=== PATIENT | male | born 1960 | race Caucasian/White ===

== ENCOUNTER 2019-08-05 20:15 | Inpatient (IN) | payer SELFPAY ==
[2019-08-05] MEDS ORDERED: ASPIRIN 81 MG TABLET, CHEWABLE PO ONE (20:25)
[2019-08-05] MEDS ORDERED: DILTIAZEM HCL INJ 25 MG/5 ML VIAL ONE (20:33)
[2019-08-05] MEDS ORDERED: DILTIAZEM HCL INJ 25 MG/5 ML VIAL IV ONE ×2 (20:33→20:34)
[2019-08-05] MEDS ORDERED: DILTIAZEM HCL/D5W 125 MG/125 ML RTUINJ IV PRN (20:35)
[2019-08-05] MEDS ORDERED: NORMAL SALINE 1000 ML 1,000 ML IV ONE ×2 (20:36→21:00)
[2019-08-05 21:06] LABS: ABSOLUTE BASOPHILS # (AUTO) 0.1 10^3/uL (0.0-0.2); ABSOLUTE EOSINOPHILS # (AUTO) 0.2 10^3/uL (0.0-0.6); ABSOLUTE MONOCYTES (AUTO) 0.7 10^3/uL (0.1-1.4); HEMOGLOBIN 14.4 g/dL (13.5-17.0); MEAN CORPUSCULAR HEMOGLOBIN 29.4 pg (27.0-33.4); TOTAL CELLS COUNTED % (AUTO) 100 %
[2019-08-05 21:12] LABS: ABSOLUTE LYMPHOCYTES (AUTO) 2.5 10^3/uL (0.5-4.7); ABSOLUTE NEUT (AUTO) 5.2 10^3/uL (1.7-8.2); EOSINOPHILS % (AUTO) 2.4 % (0-6); HEMATOCRIT 42.3 % (37.9-51.0); LYMPHOCYTES % (AUTO) 29.1 % (13-45); MEAN CORPUSCULAR VOLUME 86 fl (80-97); MONOCYTES % (AUTO) 8.2 % (3-13); PLATELET COUNT 208 10^3/uL (150-450); RED BLOOD COUNT 4.89 10^6/uL (4.35-5.55); RED CELL DISTRIBUTION WIDTH 14.6 % (11.5-14.0); SEGMENTED NEUTROPHILS % (AUTO) 59.3 % (42-78); WHITE BLOOD COUNT 8.8 10^3/uL (4.0-10.5)
--- NOTE | 2019-08-05 21:13 | ER Document Report ---
ED Cardiac - General Stated Complaint: CHEST PRESSURE,RAPID HEART RATE Information source: Patient - HPI Patient complains to provider of: Palpitations. denies: Chest pain, Chest tightness, Shortness of breath, Other Use of: denies: Alcohol, Amphetamines, Bath salts, Caffeine, Cocaine, Decongestants, Other Was the onset of pain: Unknown - patient believes this has been occuring for a week Chest pain location: No: Substernal, Axillary, Back, Pleuritic, Under breast, Other Quality of pain: denies: None, Constant, Intermittent, Mild, Moderate, Severe, A anabella, Burning, Constriction, Cramping, Crushing, Dull, Heaviness, Incisional, Indigestion, Numbness, Pressure, Radiating, Sharp, Stabbing, Tearing, Throbbing, Tightness, Tingling, Other Chest pain radiation location: denies: Left jaw, Left arm, Left shoulder, Right jaw, Right arm, Right shoulder, Back, Neck, None Chest pain precipitating factors: At Rest Cardiac risk factors: Hypertension, + Family history Positive cardiac history: Yes Associated symptoms: denies: None, Abdominal pain, Anxiety, Back pain, Cool extremities, Diaphoresis, Dizziness, Edema, Fatigue, Fever/chills, Headache, Heartburn, Hypotension, Jaw pain, Lightheaded, Nausea/vomiting, Neck pain, Rash, Shortness of breath, Swelling/lump in chest, Syncope, Weakness, Other Exacerbated by: denies: Denies, Sitting, Standing, Activity, Emotional stress, Coughing, Deep breaths, Torso movement, Lying flat, Other Relieved by: denies: Nothing, Rest, Oxygen, NTG, NSAIDs, Leaning forward, Antacids, Other Similar symptoms previously: Yes - hx afib on metoprolol but not anticoagulants. - Related Data Allergies/Adverse Reactions: No Known Allergies Allergy (Unverified 08/05/19 21:19) Past Medical History - General Information source: Patient - Social History Smoking Status: Never Smoker Frequency of alcohol use: None Lives with: Alone Family History: CAD - Past Medical History Cardiac Medical History: Reports: Hx Atrial Fibrillation, Hx Hypertension Pulmonary Medical History: Reports: None Neurological Medical History: Reports: None Review of Systems - Review of Systems Constitutional: denies: No symptoms reported, See HPI, Chills, Diaphoresis, Fever, Malaise, Weakness, Other, Weight gain, Weight loss, Recent illness Cardiovascular: Palpitations, Heart racing. denies: No symptoms reported, See HPI, Chest pain, Orthopnea, Dyspnea, Syncope, Dizziness, Lightheaded, Edema, Other, Paroxysmal Nocturnal Dysp Respiratory: denies: No symptoms reported, See HPI, Cough, Hurts to breathe, Hemoptysis, Short of breath, Sputum, Stridor, Wheezing, Other Gastrointestinal: denies: No symptoms reported, See HPI, Abdomen distended, Abdominal pain, Diarrhea, Nausea, Vomiting, Constipation, Blood streaked bowels, Poor appetite, Poor fluid intake, Blood in vomit, Black stools, Rectal bleeding, Last bowel movement, Fecal incontinence, Other -: Yes All other systems reviewed and negative Physical Exam - Vital signs Vitals: Pulse Ox 97 08/05/19 20:25 Notes: PHYSICAL EXAMINATION: GENERAL: Well-appearing, well-nourished and in no acute distress. HEAD: Atraumatic, normocephalic. EYES: Pupils equal round and reactive to light, extraocular movements intact, sclera anicteric, conjunctiva are normal. ENT: nares patent, oropharynx clear without exudates. Moist mucous membranes. NECK: Normal range of motion, supple without lymphadenopathy LUNGS: Breath sounds clear to auscultation bilaterally and equal. No wheezes rales or rhonchi. HEART: Irregularly irregular tachycardic rhythm. With A. fib on the monitor. ABDOMEN: Soft, nontender, normoactive bowel sounds. No guarding, no rebound. No masses appreciated. EXTREMITIES: Normal range of motion, no pitting or edema. No cyanosis. NEUROLOGICAL: No focal neurological deficits. Moves all extremities spontaneously and on command. PSYCH: Normal mood, normal affect. SKIN: Warm, Dry, normal turgor, no rashes or lesions noted. Course - Vital Signs Vital signs: Temp Pulse Resp BP Pulse Ox 11 L 100/77 99 08/05/19 21:46 08/05/19 21:46 08/05/19 21:46 - Laboratory Result Diagrams: 08/05/19 20:50 08/05/19 20:50 Laboratory results interpreted by me: 08/05/19 08/05/19 20:50 20:50 RDW 14.6 H Glucose 141 H Creatine Kinase 197 H - Transfer of Care Notes: 08/05/19 22:04 Note after 20 mg IV bolus of Cardizem and then 5 and up to 10 mg/h heart rate now is 90 and 102 blood pressure is mid 90s over 70s I originally was 114/78 but after a liter IV fluid he is come up appropriately so I believe this is probably due to the Cardizem itself he is feeling much better. Therefore I spoke with Dr. Agustin who is going to admit the patient as he is not anticoagulated and is not sure when this began Discharge - Discharge Clinical Impression: Atrial fibrillation with RVR Condition: Stable Disposition: ADMITTED INPATIENT Admitting Provider: Nikole (Hospitalist) Unit Admitted: [facility]
[2019-08-05 21:17] LABS: ALBUMIN 4.4 g/dL (3.5-5.0); ALKALINE PHOSPHATASE 63 U/L (38-126); ANION GAP 13 (5-19); ASPARTATE AMINO TRANSFERASE 56 U/L (17-59); BILIRUBIN,DIRECT 0.3 mg/dL (0.0-0.4); BILIRUBIN,TOTAL 0.6 mg/dL (0.2-1.3); BLOOD UREA NITROGEN 16 mg/dL (7-20); CALCIUM 9.8 mg/dL (8.4-10.2); CARBON DIOXIDE 24 mmol/L (22-30); CHLORIDE 101 mmol/L (98-107); CREATINE KINASE 197 U/L (55-170); GLUCOSE 141 mg/dL (75-110); POTASSIUM 4.3 mmol/L (3.6-5.0); TOTAL PROTEIN 7.5 g/dL (6.3-8.2)
[2019-08-05 21:28] LABS: CREATINE KINASE MB 1.07 ng/mL (<4.55); TROPONIN I 0.022 ng/mL
--- NOTE | 2019-08-05 21:31 | RADIOLOGY REPORT (SQ) ---
EXAM DESCRIPTION: XR CHEST 1 VIEW COMPLETED DATE/TME: 08/05/2019 20:25 CLINICAL HISTORY: 59 years, Male, cp COMPARISON: None. EXAM DESCRIPTION: CLINICAL HISTORY: cp COMPARISON: None. FINDINGS: Single view of the chest is submitted. Cardiac silhouette is moderately enlarged. No focal parenchymal or pleural disease. No acute bony abnormality. There is slight pulmonary vascular engorgement. IMPRESSION: Cardiomegaly with slight pulmonary vascular engorgement.
[2019-08-05 21:48] LABS: INTERNATIONAL RATION (INR) 1.11; PROTHROMBIN TIME 14.4 SEC (11.4-15.4)
[2019-08-05] MEDS ORDERED: MAG HYDROX/AL HYDROX/SIMETH SUSP 30 ML UDCUP PO PRN (23:25)
[2019-08-05] MEDS ORDERED: ONDANSETRON HCL INJ/PF 4 MG/2 ML SDV IV PRN (23:25)
[2019-08-05] MEDS ORDERED: MAGNESIUM HYDROXIDE SUSP 30 ML UDCUP PO PRN (23:25)
[2019-08-05] MEDS ORDERED: TEMAZEPAM 15 MG CAPSULE PO PRN (23:25)
[2019-08-05] MEDS ORDERED: NALBUPHINE HCL INJ 10 MG/1 ML AMPULE IV PRN ×3 (23:29→23:46)
[2019-08-05] MEDS ORDERED: ACETAMINOPHEN 325 MG TABLET PO PRN (23:29)
[2019-08-05] MEDS ORDERED: APIXABAN 5 MG TABLET PO SCH (23:33)
[2019-08-05] MEDS ORDERED: FAMOTIDINE 20 MG TABLET PO ONE (23:45)
[2019-08-05] MEDS ORDERED: APIXABAN 5 MG TABLET PO ONE (23:45)
[2019-08-06] MEDS ORDERED: DILTIAZEM HCL 90 MG TABLET PO SCH
[2019-08-06 01:20] VITALS: BP 106/66
--- NOTE | 2019-08-06 07:06 | PDOC H&P ---
History of Present Illness Admission Date/PCP: 08/05/19 22:12 No local PCP Patient complains of: Palpitations History of Present Illness: ELSI RODRIGUES is a 59 year old male who presented to the emergency room with a one-week history of intermittent palpitations. Patient admits that he has had intermittent 15 to 20-minute episodes of palpitations (rapid heartbeat) for the last week and then had a longer episode of palpitations (greater than 1 hour) this evening causing him to come to the emergency room. He denies other associated or accompanying signs and symptoms. He admits prior similar symptoms with atrial fibrillation. He has not identified any aggravating or ameliorating factors for his palpitations. In the emergency room he was found to have atrial fibrillation with a rapid ventricular response and initially negative cardiac ischemic evaluation. He was subsequently admitted to the hospital for further evaluation and treatment. Past Medical History Cardiac Medical History: Reports: Atrial Fibrillation, Hypertension Denies: Congestive Heart Failure, Coronary Artery Disease, Myocardial Infarction, Hyperlipidema Pulmonary Medical History: Denies: Asthma, Chronic Obstructive Pulmonary Disease (COPD) EENT Medical History: Denies: Cataracts, Ears - Hearing aids Neurological Medical History: Denies: Hemorrhagic CVA, Ischemic CVA, Seizures Endocrine Medical History: Denies: Diabetes Mellitus Type 1, Diabetes Mellitus Type 2, Hyperthyroidism, Hypothyroidism Renal/ Medical History: Denies: Chronic Kidney Disease, Nephrolithiasis Malignancy Medical History: Reports: None GI Medical History: Denies: Cirrhosis, Crohn's Disease, Hepatitis, Ulcerative Colitis Musculoskeltal Medical History: Denies: Arthritis, Gout Skin Medical History: Denies: Eczema, Psoriasis Psychiatric Medical History: Denies: Alcohol Dependency, Substance Abuse, Tobacco Dependency Traumatic Medical History: Reports: None Hematology: Denies: Anemia, Bleeding Tendencies Infectious Medical History: Reports: None Past Surgical History Past Surgical History: Reports: Cardiac Catheterization Social History Information Source: Patient Lives with: Alone Smoking Status: Never Smoker Electronic Cigarette use?: No Frequency of Alcohol Use: None Hx Recreational Drug Use: No Drugs: None Hx Prescription Drug Abuse: No - Advance Directive Resuscitation Status: Full Code Surrogate healthcare decision maker:: Huey Oropeza Family History Family History: CAD Parental Family History Reviewed: Yes Children Family History Reviewed: No Sibling(s) Family History Reviewed.: Yes Medication/Allergy Home Medications: Buprenorphine HCl/Naloxone HCl [Buprenorphin-Naloxon 8-2 mg Sl] 1 each SL DAILY 08/05/19 Allergies/Adverse Reactions: No Known Allergies Allergy (Unverified 08/05/19 21:19) Review of Systems Constitutional: ABSENT: chills, fever(s) Eyes: ABSENT: visual disturbances, other - Eye pain Ears: ABSENT: hearing changes, other - Ear pain Nose, Mouth, and Throat: ABSENT: headache(s), mouth pain, sore throat Cardiovascular: PRESENT: as per HPI, chest pain, palpitations. ABSENT: dyspnea on exertion, orthropnea Respiratory: ABSENT: cough, dyspnea Gastrointestinal: ABSENT: abdominal pain, constipation, diarrhea, nausea, vomiting Genitourinary: ABSENT: dysuria, hematuria Musculoskeletal: ABSENT: back pain, joint swelling, muscle weakness Integumentary: ABSENT: pruritus, rash Neurological: ABSENT: confusion, convulsions, focal weakness, memory loss, syncope Psychiatric: ABSENT: anxiety, hallucinations Endocrine: ABSENT: cold intolerance, heat intolerance Hematologic/Lymphatic: ABSENT: easy bleeding, easy bruising Allergic/Immunologic: ABSENT: seasonal rhinorrhea Physical Exam Vital Signs: Temp Pulse Resp BP Pulse Ox 14 91/76 L 94 08/05/19 23:06 08/05/19 23:06 08/05/19 23:06 Intake & Output 08/03/19 08/04/19 08/05/19 23:59 23:59 23:59 Intake Total 2004 Balance 2003 General appearance: PRESENT: no acute distress, cooperative Head exam: PRESENT: atraumatic, normocephalic Eye exam: PRESENT: conjunctiva pink. ABSENT: conjunctival injection, scleral icterus Ear exam: PRESENT: normal external ear exam. ABSENT: bleeding, drainage Mouth exam: PRESENT: dry mucosa, neck supple Neck exam: ABSENT: thyromegaly, tracheal deviation Respiratory exam: PRESENT: clear to auscultation colin, symmetrical, unlabored Cardiovascular exam: PRESENT: irregular rhythm, tachycardia. ABSENT: clicks, gallop, rubs Pulses: PRESENT: normal radial pulses, normal dorsalis pedis pul Vascular exam: PRESENT: normal capillary refill. ABSENT: pallor GI/Abdominal exam: PRESENT: normal bowel sounds, soft. ABSENT: tenderness Rectal exam: PRESENT: deferred Extremities exam: ABSENT: joint swelling, pedal edema Musculoskeletal exam: ABSENT: deformity, dislocation Neurological exam: PRESENT: alert, oriented to person, oriented to place, oriented to time, oriented to situation, CN II-XII grossly intact. ABSENT: motor sensory deficit Psychiatric exam: PRESENT: appropriate affect, normal mood Skin exam: PRESENT: dry, intact, warm. ABSENT: jaundice, rash, urticaria Results Laboratory Results: 08/05/19 20:50 08/05/19 20:50 08/05/19 08/05/19 20:50 20:50 WBC 8.8 RBC 4.89 Hgb 14.4 Hct 42.3 MCV 86 MCH 29.4 MCHC 34.0 RDW 14.6 H Plt Count 208 Seg Neutrophils % 59.3 Sodium 137.5 Potassium 4.3 Chloride 101 Carbon Dioxide 24 Anion Gap 13 BUN 16 Creatinine 1.05 Est GFR ( Amer) > 60 Glucose 141 H Calcium 9.8 Total Bilirubin 0.6 AST 56 Alkaline Phosphatase 63 Total Protein 7.5 Albumin 4.4 08/05/19 08/05/19 20:50 20:50 Creatine Kinase 197 H CK-MB (CK-2) 1.07 Troponin I 0.022 Impressions: Chest X-Ray 08/05/19 20:25 IMPRESSION: Cardiomegaly with slight pulmonary vascular engorgement. Assessment and Plan - Diagnosis (1) Chronic atrial fibrillation with rapid ventricular response Is this a current diagnosis for this admission?: Yes Plan: Patient was started on intravenous Cardizem in the emergency room and oral Cardizem conversion was also begun. He will be continued on Cardizem conversion to oral dosage. Additionally he will be treated with Eliquis and thus reestablish his anticoagulant therapy. (2) Chest pressure Is this a current diagnosis for this admission?: Yes Plan: Serial cardiac enzymes will be obtained. Further testing will be determined based upon the results of his cardiac enzymes. (3) Palpitations Is this a current diagnosis for this admission?: Yes Plan: Patient's palpitations will be addressed utilizing treatment of his atrial fibrillation with RVR. Discomfort related to his palpitations will be treated with his chest discomfort. He will utilize morphine sulfate 2 to 4 mg IV every 2 hours on a as needed basis using a sliding scale. (4) Hypertension Qualifiers: Hypertension type: essential hypertension Qualified Code(s): I10 - Essential (primary) hypertension Is this a current diagnosis for this admission?: Yes Plan: Patient's hypertension will be treated along with his atrial fibrillation with RVR utilizing IV then oral Cardizem and continuation of oral metoprolol as needed. - Time Time Spent with patient: Less than 15 minutes Medications reviewed and adjusted accordingly: Yes Anticipated discharge: Home - Inpatient Certification Based on my medical assessment, after consideration of the patient's alex rbidities, presenting symptoms, or acuity I expect that the services needed warrant INPATIENT care.: Yes I certify that my determination is in accordance with my understanding of Medicare's requirements for reasonable and necessary INPATIENT services [42 CFR 412.3e].: Yes Medical Necessity: Need Close Monitoring Due to Risk of Patient Decompensation, Need For IV Fluids, Need For Continuous Telemetry Monitoring, Risk of Complication if Not Cared For in Hospital
--- NOTE | 2019-08-06 07:08 | Left Against Medical Advice ---
Against Medical Advice Admission Date/Time: 08/05/19 22:12 Primary Care Provider: Date of Patient Emigration: 08/06/19 - Diagnosis: (1) Chronic atrial fibrillation with rapid ventricular response Is this a current diagnosis for this admission?: Yes (2) Chest pressure Is this a current diagnosis for this admission?: Yes (3) Palpitations Is this a current diagnosis for this admission?: Yes (4) Hypertension Is this a current diagnosis for this admission?: Yes - Summary: Summary: ELSI RODRIGUES is a 59 year old male who presented to the emergency room with a one-week history of intermittent palpitations. Patient admits that he has had intermittent 15 to 20-minute episodes of palpitations (rapid heartbeat) for the last week and then had a longer episode of palpitations (greater than 1 hour) this evening causing him to come to the emergency room. He denies other associated or accompanying signs and symptoms. He admits prior similar symptoms with atrial fibrillation. He has not identified any aggravating or ameliorating factors for his palpitations. In the emergency room he was found to have atrial fibrillation with a rapid ventricular response and initially negative cardiac ischemic evaluation. He was subsequently admitted to the hospital for further evaluation and treatment. ELSI RODRIGUES is a 59 M, who LEFT AGAINST MEDICAL ADVICE, by eloping from the emergency room prior to being taken to his hospital room. The Patient was admitted on 08/05/19 22:12.
--- NOTE | 2019-08-06 07:23 | EKG REPORT ---
SEVERITY:- ABNORMAL ECG - ATRIAL FIBRILLATION VENTRICULAR PREMATURE COMPLEX LOW VOLTAGE IN FRONTAL LEADS BORDERLINE T WAVE ABNORMALITIES : Confirmed by: Taylor Ibanez 06-Aug-2019 07:22:09
--- NOTE | 2019-08-06 07:23 | EKG REPORT ---
SEVERITY:- ABNORMAL ECG - ATRIAL FIBRILLATION, V-RATE 109-208 BORDERLINE PROLONGED QT INTERVAL : Confirmed by: Taylor Ibanez 06-Aug-2019 07:22:21
[2019-08-06] MEDS ORDERED: APIXABAN 5 MG TABLET PO SCH (10:00)
[2019-08-06] MEDS ORDERED: DOCUSATE SODIUM 100 MG CAPSULE PO SCH (10:00)
[2019-08-06] MEDS ORDERED: FAMOTIDINE 20 MG TABLET PO SCH (10:00)
== END 2019-08-06 01:10 | disposition left against medical advice (07) | DRG 310 ==
LOC: ER 20:15 → EH 22:12
PROVIDERS: ADMIT Emergency Medicine; ATTEND Emergency Medicine
DX: I48.20 Chronic atrial fibrillation, unspecified (principal); I10 Essential (primary) hypertension; Z60.2 Problems related to living alone; R00.2 Palpitations; Z82.49 Family history of ischemic heart disease and other diseases of the circulatory system
CPT/HCPCS: 36415; 71045; 80053; 82550; 82553; 84484; 85025; 85610; 93005; 93010; 96365; 96376; 99285; J3490; J7030